=== PATIENT | female | born 1980 | race Caucasian/White ===

== ENCOUNTER 2017-05-13 01:10 | Emergency (ER) | payer MEDICARE, OTHER ==
[~2017-05-13] VITALS: Ht 157.5 cm; Wt 93.0 kg
[~2017-05-13 01:10] MED LIST: ADVAIR; ALBU90OI INH; ALBU90OI6 INH; ALBUTEROL; AMOCLA875 PO; AMOX500 PO; AN ANTIBIOTIC; ARIP10 PO; AZIT250 PO; Amoxicillin500 MG PO; Bactrim Ds Tab1 EACH PO; CEPH500 PO; CITA20 PO; CLOT1TC TOP; CODGUAEL PO; CYCL10 PO; DESV50 PO; FLUSAL1005 INH; Fluoxetine HCl20 M1 PO; GUAI600T33 PO; GUAIFENESIN-CODE5 ML PO; HYDACE5 PO; HYDCHL12.5 PO; HYDCHL25 PO; IBUP800 PO; Keflex500 MG PO; LEVFLO500 PO; LISI5 PO; LISINOPRIL PO; LOSA50 PO; MINO100 PO; Mobic15 MG PO; NAPR500 PO; Norco 5-325 Ta1 EACH PO; OMEP20ER PO; OSEL75CA PO; Omeprazole20 M1 PO; PARO30 PO; PRED20 PO; PROM25 PO; ROPI.25 PO; ROPI1 PO; RXPROM25 PO; SPACER IH; SULTRIDS PO; TRAM50 PO; TRAZ100 PO; Vibramycin100 MG PO; WELLBUTRIN; [UNRECOGNIZED DRUG - OTHER] PO; [UNRECOGNIZED DRUG - REMARK]
[2017-05-13] MEDS ORDERED: LITH300ER PO (03:35)
== END 2017-05-13 04:43 | disposition left against medical advice (07) ==
LOC: ER 01:10
DX: Z53.21 Procedure and treatment not carried out due to patient leaving prior to being seen by health care provider (principal)

== ENCOUNTER 2017-05-17 11:53 | Emergency (ER) | payer MEDICARE, OTHER ==
[~2017-05-17] VITALS: Ht 157.5 cm; Wt 97.5 kg
[~2017-05-17 11:53] MED LIST changes: +LITH300ER PO
== END 2017-05-17 13:01 | disposition home or self-care (01) ==
LOC: ER 11:53
DX: S01.01XA Laceration without foreign body of scalp, initial encounter (principal); J45.909 Unspecified asthma, uncomplicated; F32.9 Major depressive disorder, single episode, unspecified; Z88.1 Allergy status to other antibiotic agents; Z88.2 Allergy status to sulfonamides; Z79.899 Other long term (current) drug therapy; Z90.710 Acquired absence of both cervix and uterus; Z98.51 Tubal ligation status; Z90.49 Acquired absence of other specified parts of digestive tract; Z87.891 Personal history of nicotine dependence; W22.8XXA Striking against or struck by other objects, initial encounter
CPT/HCPCS: 12001; 90471; 90714; 99283

== ENCOUNTER 2018-03-19 16:52 | Emergency (ER) | payer MEDICARE ==
[~2018-03-19] VITALS: Ht 157.5 cm; Wt 93.0 kg
[2018-03-19 17:41] LABS: Alanine Aminotransfer (ALT/SGP 24 U/L (12-78); Albumin/Globulin Ratio 1.1 (0.8-1.8); Alk Phos 55 U/L (50-136); Anion Gap 8 mmol/L (6-16); Aspartate Aminotrans (AST/SGOT 40 U/L (12-37); Bilirubin, Total 1.1 mg/dL (0.1-1.0); Blood Urea Nitrogen 7 mg/dL (8-24); Bun/Creatinine Ratio 12.4 (12.0-20.0); CO2, Blood 26 mmol/L (21-32); Calcium, Blood 8.6 mg/dL (8.5-10.1); Chloride, Blood 104 mmol/L (98-108); Creatinine, Blood 0.56 mg/dL (0.40-1.00); Globulin, Blood 3.8 g/dL (2.2-4.0); Glomerular Filtration Rate >60 (60-); Glucose, Blood 100 mg/dL (70-99); Potassium, Blood 4.1 mmol/L (3.5-5.5); Sodium, Blood 138 mmol/L (136-145); Total Protein, Blood 7.8 g/dL (6.4-8.2)
[2018-03-19 17:51] LABS: Source, Urine Clean Catch
[2018-03-19 17:55] LABS: BASOPHILS ABSOLUTE AUTO 0.05 K/mm3 (0.00-0.23); BASOPHILS PERCENT AUTO 0 % (0-2); EOSINOPHILS PERCENT AUTO 0 % (0-6); Hemoglobin 13.1 g/dL (11.5-16.0); IMMATURE GRAN ABSOLUTE AUTO 0.09 K/mm3 (0.00-0.10); IMMATURE GRAN PERCENT AUTO 0 % (0-1); LYMPHOCYTES ABSOLUTE AUTO 2.51 K/mm3 (0.84-5.20); LYMPHOCYTES PERCENT AUTO 11 % (21-46); MONOCYTES ABSOLUTE AUTO 1.19 K/mm3 (0.16-1.47); MONOCYTES PERCENT AUTO 5 % (4-13); Mean Corpuscular HGB Conc 32.8 g/dL (31.5-36.5); Mean Corpuscular Volume 89 fL (80-100); Mean Platelet Volume 9.9 fL (9.1-12.4); NEUTROPHILS ABSOLUTE AUTO 19.45 K/mm3 (1.96-9.15); NEUTROPHILS PERCENT AUTO 83 % (41-73); Platelet Count 290 K/mm3 (150-400); RDW Coefficient Variation 13.5 % (11.7-14.2); RDW Standard Deviation 44.1 fL (35.1-46.3); Red Blood Cell Count 4.51 M/mm3 (3.80-5.20); White Blood Cell Count 23.39 K/mm3 (4.00-11.30)
[2018-03-19 17:56] LABS: Appearance, Urine Clear (Clear); Bilirubin, Urine Neg (Neg); Blood, Urine Neg (Neg); Color, Urine Yellow (P-Yellow); Glucose Qualitative, Urine Neg (Neg); Ketones, Urine 2+ (Neg); Leukocyte Esterase, Urine 2+ (Neg); Nitrite, Urine Neg (Neg); Protein, Urine 2+ (Neg); Urobilinogen, Urine 1+ (Normal)
[2018-03-19 18:14] LABS: Bacteria Rare /hpf; Mucus Mod (0-Heavy); Red Blood Cells, Urine 0-2 /hpf (0-2); Squamous Epithelial Cells Few /hpf (Few)
[2018-03-19] MEDS ORDERED: CIPR500 PO (21:31)
[2018-03-19 21:53] LABS: U Amphetamine Screen DETECTED; U Barbituate Screen Not Detected; U Benzodiazapine Screen Not Detected; U Buprenorphine Screen Not Detected; U Cannabinoids Screen DETECTED; U Cocaine Screen Not Detected; U Methadone Screen Not Detected; U Methamphetamine Screen DETECTED; U Opiates Screen Not Detected; U Oxycodone Screen Not Detected; U Phencyclidine Screen Not Detected; U Propoxyphene Screen Not Detected
[2018-03-20] MEDS ORDERED: IBUP400 PO (16:57)
== END 2018-03-19 21:50 | disposition home or self-care (01) ==
LOC: ER 16:52
PROVIDERS: Emergency Medicine; Family Medicine; Physician Assistant
DX: N12 Tubulo-interstitial nephritis, not specified as acute or chronic (principal); Z88.2 Allergy status to sulfonamides; Z88.1 Allergy status to other antibiotic agents; Z79.899 Other long term (current) drug therapy; J45.909 Unspecified asthma, uncomplicated; F32.9 Major depressive disorder, single episode, unspecified; Z90.49 Acquired absence of other specified parts of digestive tract
CPT/HCPCS: 36415; 74176; 80053; 81001; 85025; 85651; 86141; 87086; 96374; 96375; 99284-25; J2405; J3010

== ENCOUNTER 2018-03-20 13:17 | Emergency (ER) | payer MEDICARE ==
[~2018-03-20] VITALS: Ht 157.5 cm; Wt 93.0 kg
[~2018-03-20 13:17] MED LIST changes: +CIPR500 PO
[2018-03-20] MEDS ORDERED: IBUP400 PO (16:57)
== END 2018-03-20 17:22 | disposition home or self-care (01) ==
LOC: ER 13:17
DX: M51.36 Other intervertebral disc degeneration, lumbar region (principal); F32.9 Major depressive disorder, single episode, unspecified; J45.909 Unspecified asthma, uncomplicated; Z87.891 Personal history of nicotine dependence; Z88.2 Allergy status to sulfonamides; Z88.1 Allergy status to other antibiotic agents; Z79.899 Other long term (current) drug therapy
CPT/HCPCS: 72158; 96372; 99283-25; A9577; J1885

== ENCOUNTER 2018-11-28 18:48 | Inpatient (IN) | payer MEDICARE, OTHER ==
[~2018-11-28] VITALS: Ht 167.6 cm; Wt 97.6 kg
[~2018-11-28 18:48] MED LIST changes: +IBUP400 PO
[2018-11-28 19:36] LABS: BASOPHILS ABSOLUTE AUTO 0.04 K/mm3 (0.00-0.23); BASOPHILS PERCENT AUTO 0 % (0-2); EOSINOPHILS ABSOLUTE AUTO 0.19 K/mm3 (0.00-0.68); EOSINOPHILS PERCENT AUTO 2 % (0-6); Hematocrit 43.4 % (33.0-51.0); Hemoglobin 13.8 g/dL (11.5-16.0); IMMATURE GRAN ABSOLUTE AUTO 0.02 K/mm3 (0.00-0.10); IMMATURE GRAN PERCENT AUTO 0 % (0-1); LYMPHOCYTES ABSOLUTE AUTO 2.04 K/mm3 (0.84-5.20); LYMPHOCYTES PERCENT AUTO 21 % (21-46); MONOCYTES ABSOLUTE AUTO 0.47 K/mm3 (0.16-1.47); MONOCYTES PERCENT AUTO 5 % (4-13); Mean Corpuscular HGB 27.3 pg (26.0-34.0); Mean Corpuscular HGB Conc 31.8 g/dL (31.5-36.5); Mean Corpuscular Volume 86 fL (80-100); Mean Platelet Volume 9.7 fL (9.1-12.4); NEUTROPHILS ABSOLUTE AUTO 6.99 K/mm3 (1.96-9.15); NEUTROPHILS PERCENT AUTO 72 % (41-73); Platelet Count 289 K/mm3 (150-400); RDW Coefficient Variation 13.1 % (11.7-14.2); RDW Standard Deviation 40.5 fL (35.1-46.3); Red Blood Cell Count 5.05 M/mm3 (3.80-5.20); White Blood Cell Count 9.75 K/mm3 (4.00-11.30)
[2018-11-28 19:54] LABS: Alanine Aminotransfer (ALT/SGP 16 U/L (12-78); Albumin, Blood 3.4 g/dL (3.4-5.0); Albumin/Globulin Ratio 0.9 (0.8-1.8); Alk Phos 63 U/L (50-136); Anion Gap 5 mmol/L (6-16); Aspartate Aminotrans (AST/SGOT 15 U/L (12-37); Bilirubin, Total 0.4 mg/dL (0.1-1.0); Blood Urea Nitrogen 11 mg/dL (8-24); Bun/Creatinine Ratio 16.9 (12.0-20.0); CO2, Blood 28 mmol/L (21-32); Calcium, Blood 8.8 mg/dL (8.5-10.1); Chloride, Blood 103 mmol/L (98-108); Creatinine, Blood 0.65 mg/dL (0.40-1.00); Globulin, Blood 3.8 g/dL (2.2-4.0); Glomerular Filtration Rate >60 (60-); Glucose, Blood 113 mg/dL (70-99); Potassium, Blood 3.5 mmol/L (3.5-5.5); Sodium, Blood 136 mmol/L (136-145); Total Protein, Blood 7.2 g/dL (6.4-8.2)
[2018-11-28 20:12] LABS: Lithium <0.20 mmol/L (0.60-1.20)
[2018-11-28] MEDS ORDERED: LOSARTAN POTASS50 MG PO (20:33)
[2018-11-28] MEDS ORDERED: LITH300C PO (20:34)
[2018-11-28] MEDS ORDERED: Prozac40 MG PO (20:34)
[2018-11-28] MEDS ORDERED: Ventolin/Prove6.7 GM INH (20:34)
--- NOTE | 2018-11-28 22:14 | NUR ---
REPORT RECEIVED FROM TYLOR RIZVI IN EMERGENCY DEPARTMENT.
[2018-11-29 01:11] LABS: Source, Urine Clean Catch
[2018-11-29 01:20] LABS: Appearance, Urine Clear (Clear); Bilirubin, Urine Neg (Neg); Blood, Urine Neg (Neg); Color, Urine Yellow (P-Yellow); Glucose Qualitative, Urine Neg (Neg); Ketones, Urine Neg (Neg); Leukocyte Esterase, Urine Neg (Neg); Nitrite, Urine Neg (Neg); Protein, Urine Neg (Neg); Urobilinogen, Urine NORM (Normal)
[2018-11-29 01:29] LABS: U Amphetamine Screen DETECTED; U Barbituate Screen Not Detected; U Benzodiazapine Screen Not Detected; U Buprenorphine Screen Not Detected; U Cannabinoids Screen DETECTED; U Cocaine Screen Not Detected; U Methadone Screen Not Detected; U Methamphetamine Screen DETECTED; U Opiates Screen Not Detected; U Oxycodone Screen Not Detected; U Phencyclidine Screen Not Detected; U Propoxyphene Screen Not Detected
[2018-11-29 03:28] LABS: BASOPHILS ABSOLUTE AUTO 0.05 K/mm3 (0.00-0.23); BASOPHILS PERCENT AUTO 1 % (0-2); EOSINOPHILS ABSOLUTE AUTO 0.28 K/mm3 (0.00-0.68); EOSINOPHILS PERCENT AUTO 3 % (0-6); Hematocrit 42.2 % (33.0-51.0); Hemoglobin 13.4 g/dL (11.5-16.0); IMMATURE GRAN ABSOLUTE AUTO 0.02 K/mm3 (0.00-0.10); IMMATURE GRAN PERCENT AUTO 0 % (0-1); LYMPHOCYTES ABSOLUTE AUTO 3.31 K/mm3 (0.84-5.20); LYMPHOCYTES PERCENT AUTO 36 % (21-46); MONOCYTES ABSOLUTE AUTO 0.58 K/mm3 (0.16-1.47); MONOCYTES PERCENT AUTO 6 % (4-13); Mean Corpuscular HGB 27.3 pg (26.0-34.0); Mean Corpuscular HGB Conc 31.8 g/dL (31.5-36.5); Mean Corpuscular Volume 86 fL (80-100); Mean Platelet Volume 9.7 fL (9.1-12.4); NEUTROPHILS ABSOLUTE AUTO 4.94 K/mm3 (1.96-9.15); NEUTROPHILS PERCENT AUTO 54 % (41-73); Platelet Count 279 K/mm3 (150-400); RDW Coefficient Variation 13.2 % (11.7-14.2); RDW Standard Deviation 40.9 fL (35.1-46.3); White Blood Cell Count 9.18 K/mm3 (4.00-11.30)
[2018-11-29 03:51] LABS: Anion Gap 6 mmol/L (6-16); Blood Urea Nitrogen 12 mg/dL (8-24); Bun/Creatinine Ratio 17.7 (12.0-20.0); CHOL/HDL RATIO 3.2; CO2, Blood 26 mmol/L (21-32); Calcium, Blood 8.4 mg/dL (8.5-10.1); Chloride, Blood 107 mmol/L (98-108); Cholesterol 145 mg/dL (50-200); Creatinine, Blood 0.68 mg/dL (0.40-1.00); Glomerular Filtration Rate >60 (60-); Glucose, Blood 84 mg/dL (70-99); HDL Cholesterol 45 mg/dL (>39); LDL/HDL RATIO 1.7; Low Density Lipoprotein Chol 74 mg/dL (0-110); Potassium, Blood 4.4 mmol/L (3.5-5.5); Sodium, Blood 139 mmol/L (136-145); Triglycerides 128 mg/dL (30-140); Very Low Density Lipoprot Chol 25 mg/dL (6-28)
--- NOTE | 2018-11-29 06:34 | NUR ---
SUMMARY SINCE ARRIVAL TO ICU, NEURO STATUS GRADUALLY IMPROVING. SEE NEURO ASSESSMENTS. PT'S STRENGTH HAS IMPROVED VASTLY ON RIGHT SIDE, BUT RIGHT LEG CONTINUES TO BE NUMB AND PT CONTINUES TO HAVE SEVERE SLURRED SPEECH. PT HAS SLEPT MAJORITY OF NIGHT BUT AROUSES EASILY FOR REASSESSMENTS. ROOMING IN. VITALS STABLE. SEE FLOWSHEET. PT EDUCATED ON USE OF CALL LIGHT BUT HAS BEEN IMPULSIVE. BED ALARM IN PLACE FOR SAFETY. STAND BY ASSIST FOR USE OF THE BEDSDIE COMMODE.
--- NOTE | 2018-11-29 08:30 | NUR ---
INITIAL ASSESSMENT PATIENT RESTING QUIETLY UPON ENTERING ROOM. PATIENT ALERT AND ORIENTED X 4. PATIENT IMPULSIVE. SPEECH GARBLED. R HAND/ ARM SLIGHTLY WEAKER THAN LEFT SIDE, BUT HAVE RECEIVED REPORT THAT IT HAS BEEN IMPROVING. PATIENT AFEBRILE. DENIES PAIN. 1 PA. RESPIRATORY WNL. PATIENT SATTING 90% AND GREATER ON RA. LUNGS CLEAR. PATIENT IN SR, HR IN THE 70S. BP STABLE. SCDS IN PLACE. GI WNL. DATE OF LAST BM UNKNOWN. WNL. SCABS, SCARRING AND BRUISES SCATTERED T/O BODY. LR INFUSING AT 125 MLS/ HOUR. BED LOW, CALL LIGHT IN REACH. WILL CONTINUE TO MONITOR PATIENT FREQUENLTY THROUGHOUT SHIFT.
--- NOTE | 2018-11-29 12:43 | NUR ---
PATIENT SITTING IN CHAIR, SPEAKING WITH VISITORS. PATIENT HAS NO COMPLAINTS AT THIS TIME. NO ACUTE CHANGES. VITAL SIGNS STABLE. WILL CONTINUE TO MONITOR.
--- NOTE | 2018-11-29 14:07 | NUR ---
PATIENT BEING TRANSFERRED NOW TO PCU ROOM 16.
[2018-11-29] MEDS ORDERED: FLUT1DIS2 INH (14:45)
[2018-11-29] MEDS ORDERED: TIZA4 PO (14:46)
--- NOTE | 2018-11-29 14:49 | NUR ---
PT TRANSFERRED FROM ICU 11. NOTED TO HAVE WEAKNESS IN ARMS AND LEGS BUT EQUAL OXYGEN THERAPY TEACHER AND MOVEMENT. COMPREHENDS WHEN SPOKEN TO BUT SLURRED SPEECH. FAMILY AT BEDSIDE. DENIES NEEDS OR CONCERNS AT THIS TIME.
--- NOTE | 2018-11-29 17:44 | NUR ---
SHIFT SUMMARY: PT INDEPENDENT IN ROOM. NEURO REMAINS UNCHANGED SINCE TRANSFER, SLURRED SPEECH. FAMILY AT BEDSIDE. DENIES NEEDS OR CONCERNS.
[2018-11-30 04:41] LABS: Anion Gap 5 mmol/L (6-16); Blood Urea Nitrogen 13 mg/dL (8-24); Bun/Creatinine Ratio 17.4 (12.0-20.0); CO2, Blood 27 mmol/L (21-32); Calcium, Blood 8.6 mg/dL (8.5-10.1); Chloride, Blood 106 mmol/L (98-108); Creatinine, Blood 0.75 mg/dL (0.40-1.00); Glomerular Filtration Rate >60 (60-); Glucose, Blood 99 mg/dL (70-99); Potassium, Blood 4.1 mmol/L (3.5-5.5); Sodium, Blood 138 mmol/L (136-145)
--- NOTE | 2018-11-30 04:58 | NUR ---
SHIFT SUMMARY: PATIENT DISPLAYING EXPRESSIVE AND RECEPTIVE APHASIA, RIGHT TONGUE DEVIATION AND VERY MILD RIGHT FACIAL DROOP. SOME RIGHT LEG ATAXIA. RIGHT CHEEK, ARM AND LEG SENSATION LOSS. ALL VSS, CALL LIGHT WITHIN REACH, BED LOW AND LOCKED WITH FFAMILY AT BEDSIDE.
[2018-11-30] MEDS ORDERED: ASPI81CH PO (10:56)
[2018-11-30] MEDS ORDERED: ATOR40TA PO (10:57)
[2018-11-30] MEDS ORDERED: LITH300C PO (11:00)
[2018-11-30] MEDS ORDERED: AMLO10 PO (11:01)
--- NOTE | 2018-11-30 14:41 | NUR ---
PT DC'D 1220 WITH DC INSTRUCTIONS TO PT AND - STAYED THE NIGHT, HELPFUL IN PT CARE. IV DC'D. PT WHEELCHAIR OUT TO PRIVATE CAR TO HOME. HOME HEALTH TO FOLLOW UP. FAMILY TO FOLLOW UP WITH OUTPATIENT SPEECH.
== END 2018-11-30 12:24 | disposition home or self-care (01) | DRG 66 ==
LOC: ER 18:48 → ICUW 21:14 → PCU 11-29 14:33
PROVIDERS: Emergency Medicine; Internal Medicine; Nurse Practitioner Acute Care; Physician Assistant; ADMIT Internal Medicine
DX: I63.512 Cerebral infarction due to unspecified occlusion or stenosis of left middle cerebral artery (principal); R47.1 Dysarthria and anarthria; R53.1 Weakness; F15.10 Other stimulant abuse, uncomplicated; F17.210 Nicotine dependence, cigarettes, uncomplicated; I10 Essential (primary) hypertension; F31.9 Bipolar disorder, unspecified; J45.909 Unspecified asthma, uncomplicated; R47.81 Slurred speech; Z68.35 Body mass index [BMI] 35.0-35.9, adult; E66.9 Obesity, unspecified
CPT/HCPCS: 36415; 70450; 80048; 80053; 80061; 80178; 81003; 83735; 85025; 92523; 92610; 93005; 93010; 97110; 97116; 97162; 97166; 97530; 97535; 99285-25; A9270; J3480; J7120

== ENCOUNTER 2019-11-28 06:08 | Day surgery (SDC) | payer MEDICARE, OTHER ==
[~2019-11-28] VITALS: Ht 157.5 cm; Wt 101.5 kg
[~2019-11-28 06:08] MED LIST changes: +AMLO10 PO; +ASPI81CH PO; +ASPIR 8181 M1 PO; +ATOR40TA PO; +Amlodipine Bes2.5 MG PO; +FLUT1DIS2 INH; +FLUTICASONE-SA1 EAC8 INH; +HYDR1TAB94 PO; +LITH300C PO; +LOSARTAN POTASS50 MG PO; +Prozac40 MG PO; +TIZA4 PO; +Ventolin/Prove6.7 GM INH
[2019-11-28] MEDS ORDERED: HYDR1TAB94 PO (06:53)
[2019-11-28 07:05] LABS: Alanine Aminotransfer (ALT/SGP 13 U/L (12-78); Albumin/Globulin Ratio 0.9 (0.8-1.8); Alk Phos 52 U/L (50-136); Anion Gap 4 mmol/L (6-16); Aspartate Aminotrans (AST/SGOT 11 U/L (12-37); Bilirubin, Total 0.1 mg/dL (0.1-1.0); Blood Urea Nitrogen 13 mg/dL (8-24); Bun/Creatinine Ratio 21.5 (12.0-20.0); CO2, Blood 26 mmol/L (21-32); Calcium, Blood 8.6 mg/dL (8.5-10.1); Chloride, Blood 109 mmol/L (98-108); Creatinine, Blood 0.61 mg/dL (0.40-1.00); Globulin, Blood 3.5 g/dL (2.2-4.0); Glomerular Filtration Rate >60 (60-); Glucose, Blood 84 mg/dL (70-99); Potassium, Blood 4.1 mmol/L (3.5-5.5); Sodium, Blood 139 mmol/L (136-145); Total Protein, Blood 6.5 g/dL (6.4-8.2)
== END 2019-11-28 09:50 | disposition home or self-care (01) ==
LOC: ORSCSDS 06:08
PROVIDERS: Surgery
PROC: 0DNU4ZZ Release Omentum, Percutaneous Endoscopic Approach (ICD-10-PCS; principal; 2019-11-28 07:30)
PROC: BF031ZZ Plain Radiography of Gallbladder and Bile Ducts using Low Osmolar Contrast (ICD-10-PCS; principal; 2019-11-28 07:30)
PROC: 0FT44ZZ Resection of Gallbladder, Percutaneous Endoscopic Approach (ICD-10-PCS; principal; 2019-11-28 07:30)
DX: K80.11 Calculus of gallbladder with chronic cholecystitis with obstruction (principal); K66.0 Peritoneal adhesions (postprocedural) (postinfection); I10 Essential (primary) hypertension; F17.210 Nicotine dependence, cigarettes, uncomplicated; Z86.73 Personal history of transient ischemic attack (TIA), and cerebral infarction without residual deficits; Z79.899 Other long term (current) drug therapy; Z79.82 Long term (current) use of aspirin
CPT/HCPCS: 74300; 80053; 88304; C1729; J0690; J1100; J1885; J2250; J2405; J2704; J2710; J2765; J3010; J7120

== ENCOUNTER 2020-02-07 01:40 | Emergency (ER) | payer MEDICARE, OTHER ==
[~2020-02-07] VITALS: Ht 157.5 cm; Wt 98.0 kg
[2020-02-07 06:03] LABS: Candida species (DNA Probe) Negative (NEGATIVE); G. vaginalis (DNA Probe) Negative (NEGATIVE); T. vaginalis (DNA Probe) Negative (NEGATIVE)
[2020-02-10 11:09] LABS: CHLAMYDIA BY NAA Negative (Negative); GONOCOCCUS BY NAA Negative (Negative); TRICH VAG BY NAA Negative (Negative)
== END 2020-02-07 05:37 | disposition home or self-care (01) ==
LOC: ER 01:40
PROVIDERS: Emergency Medicine
DX: Z03.823 Encounter for observation for suspected inserted (injected) foreign body ruled out (principal); R10.2 Pelvic and perineal pain; J45.909 Unspecified asthma, uncomplicated; F32.9 Major depressive disorder, single episode, unspecified; F17.200 Nicotine dependence, unspecified, uncomplicated; Z88.2 Allergy status to sulfonamides; Z88.1 Allergy status to other antibiotic agents; Z79.82 Long term (current) use of aspirin; Z86.73 Personal history of transient ischemic attack (TIA), and cerebral infarction without residual deficits
CPT/HCPCS: 87480; 87491; 87510; 87591; 87660; 87661; 99283

== ENCOUNTER 2021-01-29 18:37 | Emergency (ER) | payer OTHER, MEDICARE ==
[~2021-01-29] VITALS: Ht 157.5 cm; Wt 98.4 kg
[~2021-01-29 18:37] MED LIST changes: +BENZ100A PO
== END 2021-01-29 20:41 | disposition home or self-care (01) ==
LOC: ER 18:37
DX: S06.0X0A Concussion without loss of consciousness, initial encounter (principal); Z88.2 Allergy status to sulfonamides; Z88.1 Allergy status to other antibiotic agents; Z79.82 Long term (current) use of aspirin; Z79.899 Other long term (current) drug therapy; J45.909 Unspecified asthma, uncomplicated; F17.210 Nicotine dependence, cigarettes, uncomplicated; V49.40XA Driver injured in collision with unspecified motor vehicles in traffic accident, initial encounter
CPT/HCPCS: 70450; 96372; 99284-25; J1885

== ENCOUNTER → 2021-02-14 | Outpatient (CLI) | payer MEDICARE, OTHER | END | disposition home or self-care (01) | LOC: LAB SHORT 17:38 → LAB 17:38 | DX: N39.0 Urinary tract infection, site not specified (principal) | CPT/HCPCS: 87086 ==

== ENCOUNTER 2021-03-26 15:00 | Emergency (ER) | payer MEDICARE, OTHER ==
[~2021-03-26] VITALS: Ht 157.5 cm; Wt 98.4 kg
[2021-03-26 16:30] LABS: BASOPHILS ABSOLUTE AUTO 0.05 K/mm3 (0.00-0.23); BASOPHILS PERCENT AUTO 1 % (0-2); EOSINOPHILS ABSOLUTE AUTO 0.11 K/mm3 (0.00-0.68); EOSINOPHILS PERCENT AUTO 1 % (0-6); Hematocrit 40.7 % (33.0-51.0); Hemoglobin 13.4 g/dL (11.5-16.0); IMMATURE GRAN ABSOLUTE AUTO 0.01 K/mm3 (0.00-0.10); IMMATURE GRAN PERCENT AUTO 0 % (0-1); LYMPHOCYTES ABSOLUTE AUTO 2.48 K/mm3 (0.84-5.20); LYMPHOCYTES PERCENT AUTO 27 % (21-46); MONOCYTES ABSOLUTE AUTO 0.59 K/mm3 (0.16-1.47); MONOCYTES PERCENT AUTO 6 % (4-13); Mean Corpuscular HGB 27.7 pg (26.0-34.0); Mean Corpuscular HGB Conc 32.9 g/dL (31.5-36.5); Mean Corpuscular Volume 84 fL (80-100); Mean Platelet Volume 10.2 fL (9.1-12.4); NEUTROPHILS ABSOLUTE AUTO 6.07 K/mm3 (1.96-9.15); NEUTROPHILS PERCENT AUTO 65 % (41-73); Platelet Count 275 K/mm3 (150-400); RDW Coefficient Variation 13.5 % (11.7-14.2); RDW Standard Deviation 41.8 fL (35.1-46.3); Red Blood Cell Count 4.83 M/mm3 (3.80-5.20); White Blood Cell Count 9.31 K/mm3 (4.00-11.30)
[2021-03-26 16:48] LABS: Troponin I <0.015 ng/mL (0.000-0.040)
[2021-03-26 16:49] LABS: Alanine Aminotransfer (ALT/SGP 18 U/L (12-78); Albumin, Blood 3.6 g/dL (3.4-5.0); Alk Phos 44 U/L (50-136); Anion Gap 8 mmol/L (6-16); Aspartate Aminotrans (AST/SGOT 15 U/L (12-37); Bilirubin, Total 0.5 mg/dL (0.1-1.0); Blood Urea Nitrogen 21 mg/dL (8-24); CO2, Blood 24 mmol/L (21-32); Calcium, Blood 8.8 mg/dL (8.5-10.1); Chloride, Blood 107 mmol/L (98-108); Creatinine, Blood 0.64 mg/dL (0.40-1.00); Globulin, Blood 3.5 g/dL (2.2-4.0); Glomerular Filtration Rate >60 (60-); Glucose, Blood 83 mg/dL (70-99); Potassium, Blood 3.7 mmol/L (3.5-5.5); Sodium, Blood 139 mmol/L (136-145); Total Protein, Blood 7.1 g/dL (6.4-8.2)
[2021-03-26 17:07] LABS: Influenza A, PCR NEGATIVE (NEGATIVE); Influenza B, PCR NEGATIVE (NEGATIVE); Resp Syncytial Virus, PCR NEGATIVE (NEGATIVE); SARS-Cov-2 (COVID-19) PCR, MMC NEGATIVE (NEGATIVE)
== END 2021-03-26 17:30 | disposition home or self-care (01) ==
LOC: ER 15:00
PROVIDERS: Physician Assistant
DX: B34.9 Viral infection, unspecified (principal); Z20.822 Contact with and (suspected) exposure to COVID-19; J45.909 Unspecified asthma, uncomplicated; I10 Essential (primary) hypertension; E78.5 Hyperlipidemia, unspecified; Z86.73 Personal history of transient ischemic attack (TIA), and cerebral infarction without residual deficits; F17.200 Nicotine dependence, unspecified, uncomplicated
CPT/HCPCS: 0241U; 36415; 71045; 80053; 84484; 85025; 93005; 93010; 96374; 99284-25; J1885

== ENCOUNTER 2021-08-09 17:34 | Inpatient (IN) | payer MEDICARE, OTHER ==
[~2021-08-09] VITALS: Ht 157.5 cm; Wt 114.4 kg
[2021-08-09 19:40] LABS: BASOPHILS ABSOLUTE AUTO 0.03 K/mm3 (0.00-0.23); BASOPHILS PERCENT AUTO 0 % (0-2); EOSINOPHILS PERCENT AUTO 0 % (0-6); Hemoglobin 12.7 g/dL (11.5-16.0); IMMATURE GRAN ABSOLUTE AUTO 0.04 K/mm3 (0.00-0.10); IMMATURE GRAN PERCENT AUTO 0 % (0-1); LYMPHOCYTES PERCENT AUTO 10 % (21-46); MONOCYTES ABSOLUTE AUTO 0.34 K/mm3 (0.16-1.47); MONOCYTES PERCENT AUTO 3 % (4-13); Mean Corpuscular HGB 27.9 pg (26.0-34.0); Mean Corpuscular HGB Conc 32.6 g/dL (31.5-36.5); Mean Corpuscular Volume 86 fL (80-100); Mean Platelet Volume 10.2 fL (9.1-12.4); NEUTROPHILS PERCENT AUTO 86 % (41-73); Platelet Count 324 K/mm3 (150-400); RDW Coefficient Variation 12.9 % (11.7-14.2); RDW Standard Deviation 40.4 fL (35.1-46.3); Red Blood Cell Count 4.55 M/mm3 (3.80-5.20); White Blood Cell Count 11.91 K/mm3 (4.00-11.30)
[2021-08-09 19:47] LABS: Bun/Creatinine Ratio 41.8 (12.0-20.0); Calcium, Blood 8.8 mg/dL (8.5-10.1); Creatinine, Blood 0.46 mg/dL (0.40-1.00); Potassium, Blood 4.4 mmol/L (3.5-5.5)
[2021-08-09 19:53] LABS: International Normalized Ratio 0.98; Prothrombin Time Results 10.3 Sec (9.7-11.5)
[2021-08-09 20:42] LABS: Anti-Xa UFH, PHA Monitoring <0.10 IU/mL
[2021-08-09 21:26] LABS: Influenza A, PCR NEGATIVE (NEGATIVE); Influenza B, PCR NEGATIVE (NEGATIVE); Resp Syncytial Virus, PCR NEGATIVE (NEGATIVE); SARS-Cov-2 (COVID-19) PCR, MMC NEGATIVE (NEGATIVE)
[2021-08-09 21:47] LABS: Creatine Kinase MB 2.5 ng/mL (0.0-3.6); Creatine Kinase MB Index 1.1 (0.0-4.0)
[2021-08-09 22:42] LABS: Fibrinogen 338 mg/dL (170-430)
[2021-08-10] MEDS ORDERED: NEURONTIN300 MG PO (01:10)
[2021-08-10] MEDS ORDERED: BUSPIRONE HCL10 M6 PO (01:10)
--- NOTE | 2021-08-10 02:43 | NUR ---
PATIENT TO ROOM FROM [facility] AT 0100. PATIENT IS ALERT AND ORIENTED X4, COOPERATIVE WITH CARE. 02 SATS >95% ON RA, DENIES SOB. HR NSR AT 70s WITH OCCASIONAL PVCs. BP STABLE, DENIES CP PRESSURE. PATIENT HAS LEFT GROIN SITE WITH SHEATH IN PLACE, TPA AND HEPARIN INFUSING, RATES VERIFIED WITH ARUN Lopez RN. SITE WNL, NO HEMATOMA, DRESSING C/D/I, PULSES IN LOWER EXTREMETIES. RIGHT KNEE IS IMMOBILIZED. PATIENT STATES SOME NUMBNESS IN RIGHT FOOT BUT IMPROVING. PULSES STRONG IN RIGHT FOOT, WARM AND PINK IN COLOR. MEDICATED PER EMAR FOR RIGHT KNEE PAIN. HELTON PATENT AND DRAINING CLEAR YELLOW TO GRAVITY. CALL LIGHT IN REACH.
--- NOTE | 2021-08-10 04:07 | NUR ---
PULSES IN RLE BECAME FAINT/THREADY, NEEDED DOPPLER TO LOCATE PULSES. DR. ESPINOSA NOTIFIED, ORDERS TO KEEP TPA INF AT CURRENT RATE AND NOT TO DECREASE. FOOT REMAINS WARM TO THE TOUCH, PATIENT STATES IT IS STILL NUMB, ABLE TO WIGGLE TOES.
[2021-08-10 06:21] LABS: Source, Urine Foley catheter
[2021-08-10 06:28] LABS: Bilirubin, Urine Neg (Neg); Blood, Urine 4+ (Neg); Glucose Qualitative, Urine Neg (Neg); Ketones, Urine Neg (Neg); Leukocyte Esterase, Urine Neg (Neg); Nitrite, Urine Neg (Neg); Protein, Urine 2+ (Neg); Specific Gravity, Urine 1.025 (1.003-1.022); Urobilinogen, Urine NORM (Normal)
[2021-08-10 07:20] LABS: Appearance, Urine Clear (Clear); Color, Urine Yellow (P-Yellow)
[2021-08-10 07:22] LABS: White Blood Cells, Urine 0-2 /hpf (0-5)
[2021-08-10 07:23] LABS: Squamous Epithelial Cells Not Seen /hpf (Few)
[2021-08-10 07:24] LABS: Bacteria Few /hpf; Mucus Heavy (0-Heavy)
--- NOTE | 2021-08-10 08:00 | NUR ---
PT A&OX4. PT REPORTS 10/10 PAIN TO RIGHT LEG. MED WITH FENTANYL 25 MCG IVP X 1 AND VERSED 0.5 MG IVP X 1 -SEE EMAR. ECG SHOWS SR. SBP TRENDING 130'S. RIGHT DP/PT PER DOPPLER. RIGHT FOOT WARM. RIGHT LEG IN IMMOBILIZER-NO NOTED EDEMA OR SWELLING. LEFT FEMORAL SHEATH IN PLACE-NO BLEEDING OR HEMATOMA-HEPARIN INFUSING @ 600 UNITS/HR AND CATHFLO INFUSING @ 1MG/HR VIA LEFT FEMORAL SHEATH. PT GIVEN CLEAR LIQUID BREAKFAST, THEN MADE NPO SHE WILL RETURN TO THE HEART CENTER LATER TODAY. HELTON TO BSD WITH ADEQUATE AMOUNT OF CLEAR, YELLOW URINE OUTPUT. PT IS ON HER MENSES. REGGIE AND CATH CARE COMPLETED AND NEW REGGIE PAD PLACED.
--- NOTE | 2021-08-10 08:32 | NUR ---
PT CONTINUES TO REPORT 10/10 RIGHT LEG PAIN. FENTANYL 25 MCG LOADING DOSE GIVEN, AND THEN FENTANYL CONTINUOUS INITIATED @ 25 MCG/HR. DR. ESPINOSA IN TO SEE PT-UPDATE GIVEN.
--- NOTE | 2021-08-10 11:30 | NUR ---
PT CONTINUES TO REPORT RIGHT LEG PAIN-10/12 DESPITE FENTANYL CONTINUOUS @ 25 MCG/HR- DR. GOLDSTEIN GIVEN UPDATE-CNC SERVICE ENGINEER MODE CHANGED TO CNC SERVICE ENGINEER AND CONTINUOUS-SEE EMAR. LOADING DOSE OF 25 MCG GIVEN. HR REMAINS 80'S SR. BP STABLE. DP/PT PULSES PER DOPPLER. RIGHT FOOT REMAINS WARM. PT NPO EXCEPT FOR SIPS OF H20 WITH MEDS.
--- NOTE | 2021-08-10 11:45 | NUR ---
DR. CAI HERE TO SEE PT. RIGHT LEG IMMOBILIZER LOOSENED BRIEFLY AND RIGHT CALF NOTED TO BE FIRM AND SWOLLEN. NO NOTED ON AM ASSESSMENT. PT DENIES PAIN AT THIS TIME. ORTHO TO CONTINUE TO MONITOR. RN TO MONITOR RIGHT LEG FOR COMPARTMENT SYNDROME.
--- NOTE | 2021-08-10 13:30 | NUR ---
DURING HOURLY ASSESSMENT OF RIGHT LEG, NOTED INCREASED SWELLING TO CALF. PT REPORTS INCREASED PAIN 10/10 AND SHE IS SOBBING DESPITE FENTANYL CONTINUOUS AND RUBY ON RAILS ENGINEER. UNABLE TO AUSCULTATE DP PULSE WITH DOPPLER. PT PER DOPPLER. RIGHT FOOT WITH DECREASED SENSATION AND THE FOOT IS NO LONGER PINK AND WARM. THE TOES OF THE RIGHT FOOT APPEAR WHITISH IN COLOR AND THE FOOT IS NOW COOL. DR. CAI UPDATED AT [address] ESPINOSA UPDATED AT 1325. NO NEW ORDERS. PT MED WITH VERSED 0.5 MG SHE IS CRYING HYSTERICALLY DUE TO PAIN.
--- NOTE | 2021-08-10 14:05 | NUR ---
DR. GOLDSTEIN UPDATED TO INCREASED PAIN, INCREASED SWELLING, DECREASED SENSATION, AND THE INABLILITY TO AUSCULTATE DP PULSE WITH DOPPLER. ALSO, MD AWARE THAT RIGHT FOOT IS COOL AND WHITISH IN APPEARANCE. PT CONTINUES TO BE TEARFUL AND INCONSOLABLE DUE TO THE PAIN. MED WITH DILAUDID 0.5 MG IVP X 1 -SEE EMAR. #18 GUAGE 10 CM EXTENDED DWELL CATHETER PLACED TO RIGHT UPPER ARM. BRIEF REPORT GIVEN TO TYLOR MARQUEZ-PT TO HEART CENTER VIA BED @ 8046.
--- NOTE | 2021-08-10 15:15 | NUR ---
PT RETURNED FROM ON AIR TALENT. LEFT FEMORAL ANGIOSEAL CLOSURE MAN @ 5228-DRESSING C/D/I-SITE SOFT, NO BLEEDING OR HEMATOMA. RIGHT CALF REMAINS SWOLLEN AND PT REPORTS 8/10 PAIN. RIGHT DP/PT PULSES STRONG AND PALPABLE. THE RIGHT FOOT IS PINK, BUT THE TOES ARE COOL. RIGHT FOOT REMAINS "NUMB". PT STATES THAT HER RIGHT FOOT IS NOT NUMB IT WAS PRIOR TO ON AIR TALENT.
--- NOTE | 2021-08-10 15:30 | NUR ---
DR. CAI AND DR. ROWE IN TO SEE PT. FULL UPDATE GIVEN. INFORMED CONSENT OBTAINED BY DR. ROWE FOR RIGHT LEG FASCIOTOMY.
--- NOTE | 2021-08-10 16:08 | NUR ---
PT MOANING AND CRYING OUT. REPORTS 10/10 RIGHT LEG PAIN. LEFT FEMORAL SITE REMAINS CLEAR. NO BLEEDING OR HEMATOMA. DP/PT PULSES 2+ BILATERALLY. FENTANYL CONTINUOUS @ 25 MCG/HR AND STRIPPER BLACK AND WHITE 12 MCG Q 15 MIN LOCKOUT. PT MED WITH DILAUDID 0.5 MG IVP X 1 FOR PAIN. REPORT GIVEN TO TYLOR MAHMOOD-PT TRANSPORTED TO PRE-OP VIA BED WITH RN X 2 @ BEDSIDE.
--- NOTE | 2021-08-10 16:22 | NUR ---
History, Chart, Medications and Allergies reviewed before start of procedure.Lungs clear T/O to Auscultation. Patient confirms NPO status and agrees with scheduled surgery. Pre-Op teaching done. Pt verbalizes understanding.
--- NOTE | 2021-08-10 16:33 | NUR ---
DR ROWE CONSULTED PT IN ICU ROOM
--- NOTE | 2021-08-10 17:34 | NUR ---
08/10/21 3902 Cheryle Drew PATIENT ARRIVED WITH DANIE.
--- NOTE | 2021-08-10 17:40 | NUR ---
PT RETURNED FROM OR @ 1740. S/P RIGHT LEG FASCIOTOMY. SEE ICU PACU DOCUMENTATION. PT IS A&OX4. SHE IS SLEEPY, BUT AWAKENS EASILY TO VOICE.PT DENIES PAIN AT THIS TIME. PT ABLE TO C&DB WELL. LUNGS CLEAR. SATS>90% ON 2 LITERS NASAL CANULA. ECG SHOWS SR WITH RATE 80-90'S. BP STABLE. LEFT FEMORAL ANGIOSEAL SITE REMAINS CLEAR-NO BLEEDING OR HEMATOMA. RIGHT LOWER EXTREMITIY WITH KERLIX DRESSING-SMALL AMOUNT OF SANGINOUS DRAINAGE TO DRESSING. DP/PT PULSES ARE STRONG BILATERALLY. NS @ 100 CC/HR RESUMED, BUT FENTANYL CONTINUOUS ON HOLD AT THIS TIME.
--- NOTE | 2021-08-10 21:53 | NUR ---
ASSUMED CARE AT 1900 PATIENT IS ALERT AND ORIENTED X4. 02 SATS 100% ON RA, DENIES SOB. HR NSR @70s, BP STABLE. PULSES STRONG IN ALL EXTREMETIES. RIGHT FOOT WARM AND PATIENT STATES SOME NUMBNESS PRESENT, ABLE TO MOVE FOOT. DRESSING TO RIGHT LOWER LEG DRY AND INTACT. RIGHT KNEE SWOLLEN, WILL MONITOR FOR CHANGES. PATIENT DENIES PAIN AT THIS TIME. HELTON PATENT AND DRAINING TO GRAVITY. CALL LIGHT IN REACH.
[2021-08-11 03:35] LABS: Hematocrit 26.1 % (33.0-51.0); Hemoglobin 8.3 g/dL (11.5-16.0); Mean Corpuscular HGB 28.4 pg (26.0-34.0); Mean Corpuscular HGB Conc 31.8 g/dL (31.5-36.5); Mean Corpuscular Volume 89 fL (80-100); Mean Platelet Volume 9.6 fL (9.1-12.4); Platelet Count 230 K/mm3 (150-400); RDW Coefficient Variation 13.1 % (11.7-14.2); RDW Standard Deviation 42.6 fL (35.1-46.3); Red Blood Cell Count 2.92 M/mm3 (3.80-5.20); White Blood Cell Count 8.42 K/mm3 (4.00-11.30)
[2021-08-11 03:55] LABS: Albumin, Blood 2.6 g/dL (3.4-5.0); Albumin/Globulin Ratio 0.9 (0.8-1.8); Bilirubin, Total 0.3 mg/dL (0.1-1.0); Bun/Creatinine Ratio 20.8 (12.0-20.0); Calcium, Blood 8.2 mg/dL (8.5-10.1); Creatinine, Blood 0.53 mg/dL (0.40-1.00); Globulin, Blood 2.9 g/dL (2.2-4.0); Potassium, Blood 4.4 mmol/L (3.5-5.5); Total Protein, Blood 5.5 g/dL (6.4-8.2)
--- NOTE | 2021-08-11 06:08 | NUR ---
SHIFT SUMMARY PATIENT IS ALERT AND ORIENTED X4. 02 SATS 96% ON RA. HR AT 70s, BP STABLE. NO CHANGES TO RIGHT LOWER EXTREMETY, PULSES REMAIN STRONG, FOOT WARM, PATIENT ABLE TO MOVE FOOT. DRESSING TO RLE WITH SOME DRAINAGE, REINFORCED THIS AM. PATIENT MEDICATED FOR R LEG PAIN PER EMAR. PATIENT SLEPT MOST THE NIGHT. ABLE TO SHIFT HIPS, ASSISTANCE NEEDED. HELTON PATENT AND DRAINING TO GRAVITY, 1800 OUT THIS SHIFT. CALL LIGHT IN REACH.
--- NOTE | 2021-08-11 07:15 | NUR ---
PT A&OX4. PT DENIES PAIN THIS AM. ECG CONTINUES SR WITH RATE 80'S. SBP TRENDING 110'S-120'S. DP/PT PULSES 2+ BILATERALLY. RIGHT THIGH MEASURED AT DEMARCATED AREA AT 63 CM. THE RIGHT KNEE AND THIGH AREA IS SWOLLEN AND TIGHTER THAN 08/10/21 ASSESSMENTS. RIGHT LEFT KERLIX DRESSING IS C/D/I. LEFT FEMORAL ANGIOSEAL SITE CLEAR-NO BLEEDING, HEMATOMA, OR TENDERNESS NOTED. LUNGS ARE CLEAR. NO NOTED SOB OR COUGH. SATS>90% ON RA. PT DENIES GI DISTRESS AND REQUESTS THAT DIET BE ADVANCED TO REGULAR. PT CONTINUES ON HER MENSES WITH LIGHT SPOTTING. CATH/REGGIE CARE COMPLETED WITH SOAP AND WATER. NEW REGGIE PAD PLACED. HELTON TO BSD WITH ADEQUATE AMOUNT OF CLEAR, YELLOW URINE OUTPUT. WILL MONITOR RIGHT THIGH AND KNEE AREA FOR INCREASED SWELLING (HOURLY). WILL MONITOR DP/PT PULSES HOURLY WELL. ANTICIPATE ORTHO TO CHANGE RIGHT LOWER EXTREMITY DRESSING SOMETIME TODAY.
--- NOTE | 2021-08-11 08:53 | NUR ---
DR. GOLDSTEIN HERE TO SEE PT. FULL UPDATE GIVEN. REPEAT H&H @ 1200. IVF DISCONTINUED.
--- NOTE | 2021-08-11 10:02 | NUR ---
ATTEMPTED TO CONTACT DR. CAI VIA CELL PHONE-NO ANSWER. TEXT MESSAGE SENT TO DR. ROWE REQUESTING THAT SHE CALL ICU [facility]. ATTEMTPING TO DISCUSS DRESSING CHANGE TO RIGHT LOWER EXTREMITY, UPDATE ON INCREASED SWELLING TO RIGHT KNEE AND THIGH AREA, AND PLAN OF CARE/NEED FOR TRANSFER FOR VASCULAR AND ORTHOPEDIC SURGERY.
--- NOTE | 2021-08-11 10:29 | NUR ---
SPOKE WITH DR. CAI REGARDING PLAN OF CARE AND DRESSING CHANGE. DR. CAI TO REACH OUT TO BOTH DR. ROWE AND DR. ESPINOSA.
--- NOTE | 2021-08-11 11:11 | NUR ---
PT REPORTS 5/10 RIGHT LOWER EXTREMITIY PAIN. MED WITH DILAUDID 1 MG IVP X 1-SEE EMAR. PT HAS BEEN RESTING QUIETLY WHEN NOT DISTURBED. NO CHANGE IN RIGHT THIGH MEASUREMENT. DP/PT PULSES 2+ BILATERALLY. DR. ROWE GIVEN FULL UPDATE. SHE HAS SIGNED OFF TO DR. CARVAJAL.
[2021-08-11 12:03] LABS: Hematocrit 24.5 % (33.0-51.0); Hemoglobin 7.6 g/dL (11.5-16.0)
--- NOTE | 2021-08-11 12:30 | NUR ---
DR. GOLDSTEIN UPDATED TO PT H&H-1 UNIT PRBC'S TO BE TRANSFUSED.
--- NOTE | 2021-08-11 13:07 | NUR ---
PT REPORTS 7/10 RIGHT LOWER EXTREMITY PAIN-MED WITH DILAUDID 1 MG IVP X 1. PRBC'S INITIATED PER PROPER CHECKS AND ID-SEE TRANSFUSION RECORD.
--- NOTE | 2021-08-11 13:45 | NUR ---
DR. CARVAJAL HERE TO SEE PT. FULL UPDATE GIVEN. MD AWARE OF THE RIGHT KNEE AND THIGH SWELLING AND CURRENT MEASUREMENT. NO NEW ORDERS. NO DRESSING CHANGE NEEDED TODAY-CHANGE PRN IF SATURATED. DR. CARVAJAL WOULD LIKE PT TO BE TRANSFERED TO A HIGHER LEVEL OF CARE FOR VASCULAR SURGERY AND KNEE RECONSTRUCTION. DR. ROQUE UPDATED. TYLOR ISRAEL CONTACTED TRANSFER COORDINATORS AT FACILITIES THAT PT HAS BEEN WAIT LISTED.
--- NOTE | 2021-08-11 17:26 | NUR ---
PT RESTS INTERMITTENTLY WHEN NOT DISTURBED. RIGHT LEG PAIN CONTROLLED QUITE WELL WITH DILAUDID 1 MG IVP-SEE EMAR. RIGHT LEG SWELLING AND TIGHTNESS UNCHANGED THIS SHIFT. DP/PT PULSES STILL 2+ BILATERALLY. PT TOLERATING PO FOOD AND FLUIDS WELL. URINE OUTPUT 900 CC THIS SHIFT. PT RECEIVED 1 UNIT PRBC'S THIS SHIFT. WILL RECHECK CBC IN AM. WILL CONTACT HOSPITALIST TO DISCUSS TRANSFER STATUS.
--- NOTE | 2021-08-11 18:31 | NUR ---
PT RESTING QUIETLY WHEN NOT DISTURBED. MESSAGE LEFT FOR DR. GOLDSTEIN EARLIER, BUT NO RETURN CALL OR WORD REGARDING TRANSFER STATUS.
--- NOTE | 2021-08-11 20:00 | NUR ---
ASSUMED CARE OF PT AT 1915. REPORT RECEIVED AT BEDSIDE. PT PRESENTS IN BED. SOMEWHAT WITHDRAWN. DOES ACKNOWLEDGE AND PARTICIPATE IN CONVERSATIONS. PT HAS PALPABLE RIGHT LOWER EXTREMITY PEDAL AND POST-TIBIAL PULSES. MEASUREMENT OF RIGHT THIGH AT MARKING WITH OFFGOING RN. REVEALS 61.5 CM WHICH IS SLIGHTLY DECREASED. ENCOURAGED PT TO KEEP LEG ELEVATED TO ASSIST WITH REDUCTION IN SWELLING. WILL DO DRESSING CHANGE THIS EVENING FOR DRESSING SATURATION. WILL REVIEW CHART AND PLAN OF CARE FOR THIS PT.
--- NOTE | 2021-08-11 22:45 | NUR ---
PT WAS MEDICATED WITH 1 MG DILAUDID FOR COMPLAINT OF PAIN TO RIGHT LEG/KNEE. PT STATED THAT THIS WAS HELPING. DID TAKE DRESSING DOWN FROM RIGHT LEG SECONDARY TO SATURATION. SEROUSAINGEOUS IN NATURE. NO FOWL ODOR. DID OPT TO LEAVE GAUZE TO FASCIOTOMY SITES TO RIGHT LEG. ABD PADS PLACED OVER GAUZE, AND SECURED WITH 4 INCH CONFORM GAUZE. ASSISTED BY CADD OPERATOR. PT DID STATE HER PAIN LEVEL HAD INCREASED WITH MOVEMENT AND REMOVING DRESSING. DID MEDICATE PT WITH ADDITIONAL 1 MG DILAUDID. PT CURRENTLY RESTING. RIGHT LEG ELEVATED ON PILLOW, AND FOOT OF BED IS IN ELEVATED POSITION. WILL CONTINUE TO MONITOR. REMAINS WITH GOOD DISTAL CMS CHECKS. LEFT GROIN SITE WITHOUT OOZING OR HEMATOMA. CADD OPERATOR TO ASSIST PT WITH CATH CARE SECONDARY TO PT BEING ON HER MENSES.
--- NOTE | 2021-08-12 00:32 | NUR ---
PT SLEEPING AT THIS TIME. CONTINUES WITH HER RIGHT LEG ELEVATED ON PILLOW. NO COMPLAINTS VOICED AT THIS TIME.
[2021-08-12 04:15] LABS: Hematocrit 25.6 % (33.0-51.0); Hemoglobin 8.2 g/dL (11.5-16.0); Mean Corpuscular HGB 29.2 pg (26.0-34.0); Mean Corpuscular Volume 91 fL (80-100); Mean Platelet Volume 9.8 fL (9.1-12.4); Platelet Count 162 K/mm3 (150-400); RDW Coefficient Variation 13.2 % (11.7-14.2); RDW Standard Deviation 43.9 fL (35.1-46.3); Red Blood Cell Count 2.81 M/mm3 (3.80-5.20); White Blood Cell Count 8.89 K/mm3 (4.00-11.30)
[2021-08-12 04:44] LABS: Albumin, Blood 2.4 g/dL (3.4-5.0); Albumin/Globulin Ratio 0.9 (0.8-1.8); Bilirubin, Total 0.4 mg/dL (0.1-1.0); Bun/Creatinine Ratio 30.2 (12.0-20.0); Calcium, Blood 7.7 mg/dL (8.5-10.1); Creatinine, Blood 0.6 mg/dL (0.40-1.00); Globulin, Blood 2.7 g/dL (2.2-4.0); Percent Saturation 7.5 % (15.0-50.0); Total Protein, Blood 5.1 g/dL (6.4-8.2)
--- NOTE | 2021-08-12 05:59 | NUR ---
MEDICATED PT AGAIN WITH 1 MG DILAUDID FOR COMPLAINT OF 7/10 PAIN TO RIGHT LEG AND KNEE. DRESSING TO LEG CDI. REMAINS WITH GOOD DISTAL CMS CHECKS. PT HAS BEEN ABLE TO REST SOME THIS NIGHT. ACKNOWLEDGES THAT HAVING HER LEG ELEVATED HAS HELPED WITH THE DISCOMFORT. WILL CONTINUE TO MONITOR PT, AND WILL REPORT OFF TO ONCOMING RN.
--- NOTE | 2021-08-12 07:33 | NUR ---
ASSUMPTION OF CARE RECEIVED REPORT FROM JOJO SNIDER AT 0700, ASSUMED CARE OF PATIENT. PATIENT WITH EYES CLOSED, EASILY AWOKE. STATED PAIN 5/10 IN RIGHT LEG, TOLERABLE AT THIS TIME. GIRTH OF RIGHT THIGH MEASURED AT 66CM. SOFT TO TOUCH. AFEBRILE, AND VITALS STABLE ON ROOM AIR. ORDERS REVIEWED, WILL TREAT PRESCRIBED.
--- NOTE | 2021-08-12 14:00 | NUR ---
Spiritual Care Visit - "Things We Care to Know" Pt. is awake in bed and welcomes my visit. Pt. is unsettled about the prognosis of her injury. With a calming presence and theraputic listening Pt. displays evidence of trust. Introduce and execute "Things We Care to Know" survey. Pts. verbal responses establish a platform for rapport to be built. Pt. is open to Prayer. Prayed with Pt. Pt. verbalized gratitude for the spiritual care visit. Will return to post "Things We Care to Know" responses on Pts. room wall. "Things We Care to Know" is a Spiritual Care airplane pilot helper program designed to personalize the Pt./Staff relationship.
--- NOTE | 2021-08-12 15:08 | NUR ---
TRANSFER PATIENT TO TRANSFER TO [facility]. PATIENT A/O. DRESSING CHANGE TO RIGHT LOWER EXTREMITY WITH DRAININAGE S/S. CURRENTLY DRESSING IS C/D/I. REPORT CALLED TO [facility] AND GIVEN TO STEVE SNIDER. ATTEMPTED TO CALL [facility] OFFICE AT 1447, LEFT MESSAGE WITH OUR CALL BACK NUMBER TO NOTIFY OF PATIENT'S TRANSFER. CALLED AND SPOKE TO COUNSELOR JOSUE PER PATIENT'S REQUEST AND NOTIFIED OF TRANSFER TO [facility] GIVING CONTACT INFORMATION FOR THE NEW UNIT PATIENT WILL BE IN. VITALS CURRENTLY STABLE, REMAINS ON ROOM AIR.
== END 2021-08-12 16:18 | disposition short-term general hospital (02) | DRG 253 ==
LOC: ER 17:34 → ICUE 21:51 → ICUW 21:51 → ICUE 08-10 00:50
PROVIDERS: Internal Medicine; Radiology Diagnostic Radiology; Student in an Organized Health Care Education/Training Program; ADMIT Family Medicine
PROC: 047K3ZZ Dilation of Right Femoral Artery, Percutaneous Approach (ICD-10-PCS; principal; 2021-08-09)
PROC: 0KNS0ZZ Release Right Lower Leg Muscle, Open Approach (ICD-10-PCS; 2021-08-09)
PROC: 047M3ZZ Dilation of Right Popliteal Artery, Percutaneous Approach (ICD-10-PCS; 2021-08-09)
PROC: 047P3ZZ Dilation of Right Anterior Tibial Artery, Percutaneous Approach (ICD-10-PCS; 2021-08-09)
PROC: 3E03317 Introduction of Other Thrombolytic into Peripheral Vein, Percutaneous Approach (ICD-10-PCS; 2021-08-09)
PROC: B41F1ZZ Fluoroscopy of Right Lower Extremity Arteries using Low Osmolar Contrast (ICD-10-PCS; 2021-08-09)
DX: I70.221 Atherosclerosis of native arteries of extremities with rest pain, right leg (principal); T79.A21A Traumatic compartment syndrome of right lower extremity, initial encounter; S82.831A Other fracture of upper and lower end of right fibula, initial encounter for closed fracture; D64.9 Anemia, unspecified; I10 Essential (primary) hypertension; F15.10 Other stimulant abuse, uncomplicated; S83.104A Unspecified dislocation of right knee, initial encounter; J45.909 Unspecified asthma, uncomplicated; F32.A Depression, unspecified; E78.5 Hyperlipidemia, unspecified; F17.210 Nicotine dependence, cigarettes, uncomplicated; Z20.822 Contact with and (suspected) exposure to COVID-19; Z88.1 Allergy status to other antibiotic agents; Z88.2 Allergy status to sulfonamides; Z79.82 Long term (current) use of aspirin; Z79.899 Other long term (current) drug therapy; V29.9XXA Motorcycle rider (driver) (passenger) injured in unspecified traffic accident, initial encounter; Z86.73 Personal history of transient ischemic attack (TIA), and cerebral infarction without residual deficits; Z98.51 Tubal ligation status; Z90.49 Acquired absence of other specified parts of digestive tract
CPT/HCPCS: 0241U; 29505; 36415; 36430; 37211; 37214; 37224; 37226; 37228; 51702; 73560-RT; 73706; 75625; 75716; 75774; 76937; 80048; 80053; 81001; 82550; 82553; 82728; 83540; 83550; 83605; 85014; 85018; 85025; 85027; 85384; 85520; 85610; 85730; 86850; 86900; 86901; 86920; 96365-59; 96375-59; 99152; 99153; 99285-25; A9270; C1725; C1751; C1757; C1760; C1769; C1874; C1887; C1894; J0330; J1100; J1170; J1644; J1650; J2250; J2405; J2704; J2916; J2997; J3010; J7030; J7040; J7120; P9016; Q9967

== ENCOUNTER → 2021-09-21 | Day surgery (SDC) | payer OTHER, MEDICARE ==
[~2021-09-21] MED LIST changes: +BUSPIRONE HCL10 M6 PO; +NEURONTIN300 MG PO
== END ==
LOC: WOUND 02:21
DX: S81.001A Unspecified open wound, right knee, initial encounter (principal); S83.104D Unspecified dislocation of right knee, subsequent encounter; J45.909 Unspecified asthma, uncomplicated; I10 Essential (primary) hypertension; Z88.2 Allergy status to sulfonamides; Z87.891 Personal history of nicotine dependence; V19.9XXA Pedal cyclist (driver) (passenger) injured in unspecified traffic accident, initial encounter
CPT/HCPCS: A9270; G0463

== ENCOUNTER 2021-09-24 11:46 | Emergency (ER) | payer MEDICARE, OTHER ==
[~2021-09-24] VITALS: Ht 157.5 cm; Wt 99.8 kg
[2021-09-24 12:53] LABS: BASOPHILS ABSOLUTE AUTO 0.04 K/mm3 (0.00-0.23); BASOPHILS PERCENT AUTO 0 % (0-2); EOSINOPHILS ABSOLUTE AUTO 0.22 K/mm3 (0.00-0.68); EOSINOPHILS PERCENT AUTO 2 % (0-6); Hematocrit 38.6 % (33.0-51.0); Hemoglobin 11.7 g/dL (11.5-16.0); IMMATURE GRAN ABSOLUTE AUTO 0.02 K/mm3 (0.00-0.10); IMMATURE GRAN PERCENT AUTO 0 % (0-1); LYMPHOCYTES ABSOLUTE AUTO 2.01 K/mm3 (0.84-5.20); LYMPHOCYTES PERCENT AUTO 22 % (21-46); MONOCYTES PERCENT AUTO 5 % (4-13); Mean Corpuscular HGB 25.7 pg (26.0-34.0); Mean Corpuscular HGB Conc 30.3 g/dL (31.5-36.5); Mean Corpuscular Volume 85 fL (80-100); NEUTROPHILS ABSOLUTE AUTO 6.42 K/mm3 (1.96-9.15); NEUTROPHILS PERCENT AUTO 70 % (41-73); Platelet Count 368 K/mm3 (150-400); RDW Coefficient Variation 14.6 % (11.7-14.2); RDW Standard Deviation 44.9 fL (35.1-46.3); Red Blood Cell Count 4.55 M/mm3 (3.80-5.20); White Blood Cell Count 9.21 K/mm3 (4.00-11.30)
[2021-09-24 13:09] LABS: Albumin, Blood 3.4 g/dL (3.4-5.0); Albumin/Globulin Ratio 0.7 (0.8-1.8); Bilirubin, Total 0.3 mg/dL (0.1-1.0); Bun/Creatinine Ratio 27.8 (12.0-20.0); C-REACTIVE PROTEIN, EXT RANGE 3.88 mg/dL (0.000-0.300); Calcium, Blood 8.9 mg/dL (8.5-10.1); Creatinine, Blood 0.58 mg/dL (0.40-1.00); Globulin, Blood 4.6 g/dL (2.2-4.0); Potassium, Blood 4.1 mmol/L (3.5-5.5)
[2021-09-24] MEDS ORDERED: Mupirocin22 GM TOP (15:36)
[2021-09-24] MEDS ORDERED: CLIN300 PO (15:36)
== END 2021-09-24 15:58 | disposition home or self-care (01) ==
LOC: ER 11:46
PROVIDERS: Physician Assistant
DX: T81.49XA Infection following a procedure, other surgical site, initial encounter (principal); Z79.82 Long term (current) use of aspirin; Z79.899 Other long term (current) drug therapy; Y83.8 Other surgical procedures as the cause of abnormal reaction of the patient, or of later complication, without mention of misadventure at the time of the procedure
CPT/HCPCS: 36415; 73701; 80053; 85025; 86140; A9270; J1885; Q9967

== ENCOUNTER 2021-09-28 01:01 | Day surgery (SDC) | payer MEDICARE, OTHER ==
[~2021-09-28 01:01] MED LIST changes: +CLIN300 PO; +Mupirocin22 GM TOP
== END 2021-09-28 23:32 | disposition home or self-care (01) ==
LOC: WOUND 01:01
DX: L97.812 Non-pressure chronic ulcer of other part of right lower leg with fat layer exposed (principal); T81.31XD Disruption of external operation (surgical) wound, not elsewhere classified, subsequent encounter; S83.104D Unspecified dislocation of right knee, subsequent encounter; V19.9XXD Pedal cyclist (driver) (passenger) injured in unspecified traffic accident, subsequent encounter
CPT/HCPCS: A9270

== ENCOUNTER 2021-10-12 01:18 | Day surgery (SDC) | payer MEDICARE, OTHER | END 2021-10-12 23:04 | disposition home or self-care (01) | LOC: WOUND 01:18 | DX: S81.801D Unspecified open wound, right lower leg, subsequent encounter (principal); L97.812 Non-pressure chronic ulcer of other part of right lower leg with fat layer exposed; Y93.55 Activity, bike riding | CPT/HCPCS: A9270; G0463 ==

== ENCOUNTER 2021-10-19 01:06 | Day surgery (SDC) | payer MEDICARE, OTHER | END 2021-10-19 23:39 | disposition home or self-care (01) | LOC: WOUND 01:06 | DX: L97.812 Non-pressure chronic ulcer of other part of right lower leg with fat layer exposed (principal); S83.104D Unspecified dislocation of right knee, subsequent encounter; X58.XXXD Exposure to other specified factors, subsequent encounter; T81.30XD Disruption of wound, unspecified, subsequent encounter | CPT/HCPCS: A9270; G0463 ==

== ENCOUNTER → 2021-10-20 | Outpatient (CLI) | payer MEDICARE, OTHER | END | disposition home or self-care (01) | LOC: LAB SHORT 15:52 → LAB 15:52 | DX: R30.9 Painful micturition, unspecified (principal) | CPT/HCPCS: 87086 ==

== ENCOUNTER 2021-10-26 01:59 | Day surgery (SDC) | payer MEDICARE, OTHER | END 2021-10-26 23:25 | disposition home or self-care (01) | LOC: WOUND 01:59 | DX: T81.31XD Disruption of external operation (surgical) wound, not elsewhere classified, subsequent encounter (principal); L97.812 Non-pressure chronic ulcer of other part of right lower leg with fat layer exposed | CPT/HCPCS: G0463 ==

== ENCOUNTER 2021-11-02 03:29 | Day surgery (SDC) | payer MEDICARE, OTHER | END 2021-11-02 22:51 | disposition home or self-care (01) | LOC: WOUND 03:29 | DX: L97.812 Non-pressure chronic ulcer of other part of right lower leg with fat layer exposed (principal); T81.31XD Disruption of external operation (surgical) wound, not elsewhere classified, subsequent encounter; Y83.4 Other reconstructive surgery as the cause of abnormal reaction of the patient, or of later complication, without mention of misadventure at the time of the procedure; S83.104D Unspecified dislocation of right knee, subsequent encounter; V19.9XXD Pedal cyclist (driver) (passenger) injured in unspecified traffic accident, subsequent encounter | CPT/HCPCS: A9270; G0463 ==

== ENCOUNTER 2021-11-16 07:46 | Day surgery (SDC) | payer MEDICARE, OTHER | END 2021-11-16 23:36 | disposition home or self-care (01) | LOC: WOUND 07:46 | DX: Z09 Encounter for follow-up examination after completed treatment for conditions other than malignant neoplasm (principal) | CPT/HCPCS: A9270; G0463 ==

== ENCOUNTER 2022-05-26 19:00 | Emergency (ER) | payer MEDICARE, OTHER ==
[~2022-05-26] VITALS: Ht 157.5 cm; Wt 99.8 kg
== END 2022-05-26 19:33 | disposition home or self-care (01) ==
LOC: ER 19:00
DX: S09.90XA Unspecified injury of head, initial encounter (principal); I10 Essential (primary) hypertension; F17.200 Nicotine dependence, unspecified, uncomplicated; W22.8XXA Striking against or struck by other objects, initial encounter; Z88.2 Allergy status to sulfonamides; Z88.1 Allergy status to other antibiotic agents; Z79.899 Other long term (current) drug therapy; Z79.82 Long term (current) use of aspirin; Z86.73 Personal history of transient ischemic attack (TIA), and cerebral infarction without residual deficits
CPT/HCPCS: 99282

== ENCOUNTER 2022-12-28 23:50 | Emergency (ER) | payer MEDICARE, OTHER ==
[~2022-12-28] VITALS: Ht 157.5 cm; Wt 99.8 kg
[2022-12-29] MEDS ORDERED: ATOR40TA PO (00:35)
[2022-12-29] MEDS ORDERED: NEURONTIN300 MG PO (00:35)
[2022-12-29] MEDS ORDERED: VILAZODONE HCL40 MG PO (00:36)
[2022-12-29 02:00] VITALS: BP 174/105
[2022-12-29] MEDS ORDERED: Ibuprofen600 MG PO (04:08)
== END 2022-12-29 04:39 | disposition home or self-care (01) ==
LOC: ER 23:50
DX: S86.911A Strain of unspecified muscle(s) and tendon(s) at lower leg level, right leg, initial encounter (principal); X50.1XXA Overexertion from prolonged static or awkward postures, initial encounter; Z88.1 Allergy status to other antibiotic agents; Z88.2 Allergy status to sulfonamides; Z79.82 Long term (current) use of aspirin; Z79.899 Other long term (current) drug therapy; I10 Essential (primary) hypertension; E78.5 Hyperlipidemia, unspecified; J45.909 Unspecified asthma, uncomplicated; Z86.73 Personal history of transient ischemic attack (TIA), and cerebral infarction without residual deficits; F17.200 Nicotine dependence, unspecified, uncomplicated
CPT/HCPCS: 73562-RT; 93926; 93971; 99284-25; A9270; J1885

== ENCOUNTER 2023-07-06 19:35 | Emergency (ER) | payer MEDICARE, OTHER ==
[~2023-07-06] VITALS: Ht 157.5 cm; Wt 99.8 kg
[~2023-07-06 19:35] MED LIST changes: +Ibuprofen600 MG PO; +VILAZODONE HCL40 MG PO
[2023-07-06 20:07] VITALS: BP 174/101
== END 2023-07-06 22:10 | disposition home or self-care (01) ==
LOC: ER 19:35
DX: M25.532 Pain in left wrist (principal); Z88.1 Allergy status to other antibiotic agents; Z88.2 Allergy status to sulfonamides; Z79.899 Other long term (current) drug therapy; Z79.82 Long term (current) use of aspirin; I10 Essential (primary) hypertension; E78.00 Pure hypercholesterolemia, unspecified; F17.210 Nicotine dependence, cigarettes, uncomplicated
CPT/HCPCS: 73100; 99283-25

== ENCOUNTER 2023-09-28 22:58 | Emergency (ER) | payer MEDICARE, OTHER ==
[~2023-09-28] VITALS: Ht 157.5 cm; Wt 99.8 kg
[2023-09-28 23:01] VITALS: BP 152/89
[2023-09-28 23:22] LABS: BASOPHILS ABSOLUTE AUTO 0.05 K/mm3 (0.00-0.23); BASOPHILS PERCENT AUTO 1 % (0-2); EOSINOPHILS ABSOLUTE AUTO 0.28 K/mm3 (0.00-0.68); EOSINOPHILS PERCENT AUTO 3 % (0-6); Hematocrit 37.2 % (33.0-51.0); Hemoglobin 11.9 g/dL (11.5-16.0); IMMATURE GRAN ABSOLUTE AUTO 0.01 K/mm3 (0.00-0.10); IMMATURE GRAN PERCENT AUTO 0 % (0-1); LYMPHOCYTES ABSOLUTE AUTO 2.88 K/mm3 (0.84-5.20); LYMPHOCYTES PERCENT AUTO 32 % (21-46); MONOCYTES ABSOLUTE AUTO 0.77 K/mm3 (0.16-1.47); MONOCYTES PERCENT AUTO 8 % (4-13); Mean Corpuscular HGB 27.5 pg (26.0-34.0); Mean Corpuscular Volume 86 fL (80-100); NEUTROPHILS ABSOLUTE AUTO 5.14 K/mm3 (1.96-9.15); NEUTROPHILS PERCENT AUTO 56 % (41-73); Platelet Count 263 K/mm3 (150-400); RDW Coefficient Variation 13.7 % (11.7-14.2); RDW Standard Deviation 43.5 fL (35.1-46.3); Red Blood Cell Count 4.32 M/mm3 (3.80-5.20); White Blood Cell Count 9.13 K/mm3 (4.00-11.30)
[2023-09-28 23:49] LABS: Albumin, Blood 3.4 g/dL (3.4-5.0); Albumin/Globulin Ratio 0.9 (0.8-1.8); Bilirubin, Total 0.4 mg/dL (0.1-1.0); Bun/Creatinine Ratio 16.7 (12.0-20.0); Calcium, Blood 8.3 mg/dL (8.5-10.1); Creatinine, Blood 0.72 mg/dL (0.40-1.00); Globulin, Blood 3.7 g/dL (2.2-4.0); Potassium, Blood 3.2 mmol/L (3.5-5.5); Total Protein, Blood 7.1 g/dL (6.4-8.2)
[2023-09-29] MEDS ORDERED: Methocarbamol 500 MG Tab PO ONE (00:10)
[2023-09-29] MEDS ORDERED: Ondansetron 4 MG SoluTab SL ONE (00:10)
[2023-09-29] MEDS ORDERED: Acetaminophen 500 MG Tab PO ONE (00:10)
[2023-09-29] MEDS ORDERED: Ketorolac Tromethamine 30mg Vial IM ONE (00:10)
[2023-09-29] MEDS ORDERED: Gabapentin 300 MG Cap PO ONE (00:10)
[2023-09-29] MEDS ORDERED: Potassium Chloride 20 MEQ/15 ML UDC PO ONE (00:15)
[2023-09-29] MEDS ORDERED: Robaxin750 MG PO (01:24)
[2023-09-29] MEDS ORDERED: GABA300 PO (01:24)
== END 2023-09-29 01:31 | disposition home or self-care (01) ==
LOC: ER 22:58
PROVIDERS: Student in an Organized Health Care Education/Training Program
DX: M54.50 Low back pain, unspecified (principal); G89.29 Other chronic pain; R25.2 Cramp and spasm; E87.6 Hypokalemia; Z88.2 Allergy status to sulfonamides; Z88.1 Allergy status to other antibiotic agents; Z79.899 Other long term (current) drug therapy; Z79.82 Long term (current) use of aspirin; J45.909 Unspecified asthma, uncomplicated; I10 Essential (primary) hypertension; E78.5 Hyperlipidemia, unspecified; F17.210 Nicotine dependence, cigarettes, uncomplicated
CPT/HCPCS: 36415; 80053; 85025; 96372; 99283; A9270; J1885

== ENCOUNTER 2024-01-03 21:14 | Emergency (ER) | payer MEDICARE, OTHER ==
[~2024-01-03] VITALS: Ht 160 cm; Wt 90.7 kg
[~2024-01-03 21:14] MED LIST changes: +GABA300 PO; +Robaxin750 MG PO
[2024-01-03 21:59] VITALS: BP 158/105
== END 2024-01-04 00:41 | disposition home or self-care (01) ==
LOC: ER 21:14
DX: S00.212A Abrasion of left eyelid and periocular area, initial encounter (principal); S00.211A Abrasion of right eyelid and periocular area, initial encounter; J45.909 Unspecified asthma, uncomplicated; I10 Essential (primary) hypertension; E78.5 Hyperlipidemia, unspecified; F17.210 Nicotine dependence, cigarettes, uncomplicated; Y04.8XXA Assault by other bodily force, initial encounter; Z86.73 Personal history of transient ischemic attack (TIA), and cerebral infarction without residual deficits; Z79.82 Long term (current) use of aspirin; Z79.51 Long term (current) use of inhaled steroids; Z79.899 Other long term (current) drug therapy; Z88.2 Allergy status to sulfonamides; Z88.1 Allergy status to other antibiotic agents
CPT/HCPCS: 99283

== ENCOUNTER 2024-02-15 13:34 | Day surgery (SDC) | payer MEDICARE, OTHER ==
[~2024-02-15 13:34] MED LIST changes: +Lactated Ringer's 1,000 ML IV ONE; +Lidocaine HCl/Pf 1% 5 ML VIAL ONE
[2024-02-15] MEDS ORDERED: TRAM50 (14:12)
[2024-02-15] MEDS ORDERED: TRAZ50 (14:12)
[2024-02-15] MEDS ORDERED: Midazolam HCl 1MG / ML 2ML Vial ONE (14:58)
[2024-02-15] MEDS ORDERED: Lactated Ringer's 1,000 ML IV ONE (15:03)
[2024-02-15] MEDS ORDERED: Benzocaine Oral Spray 0.5ML UD ONE (15:10)
[2024-02-15] MEDS ORDERED: propofoL 50 ML IV ONE (15:14)
[2024-02-15 16:56] VITALS: BP 130/89
== END 2024-02-15 16:45 | disposition home or self-care (01) ==
LOC: ORSCSDS 13:34
PROVIDERS: Internal Medicine Gastroenterology
PROC: 0DB68ZX Excision of Stomach, Via Natural or Artificial Opening Endoscopic, Diagnostic (ICD-10-PCS; principal; 2024-02-15 14:45)
PROC: 0DBK8ZX Excision of Ascending Colon, Via Natural or Artificial Opening Endoscopic, Diagnostic (ICD-10-PCS; principal; 2024-02-15 14:45)
DX: R19.4 Change in bowel habit (principal); K21.9 Gastro-esophageal reflux disease without esophagitis; R11.2 Nausea with vomiting, unspecified; Z80.0 Family history of malignant neoplasm of digestive organs; D12.2 Benign neoplasm of ascending colon; K29.70 Gastritis, unspecified, without bleeding; K44.9 Diaphragmatic hernia without obstruction or gangrene; R10.9 Unspecified abdominal pain; I10 Essential (primary) hypertension; E78.5 Hyperlipidemia, unspecified; E88.810 Metabolic syndrome; I63.9 Cerebral infarction, unspecified; F32.A Depression, unspecified; F41.9 Anxiety disorder, unspecified; E66.9 Obesity, unspecified; Z68.39 Body mass index [BMI] 39.0-39.9, adult; Z79.899 Other long term (current) drug therapy
CPT/HCPCS: 88305; A9270; J2003; J2250; J2704; J7120

== ENCOUNTER → 2024-03-07 | Outpatient (CLI) | payer MEDICARE, OTHER ==
[~2024-03-07] MED LIST changes: -Lactated Ringer's 1,000 ML IV ONE; -Lidocaine HCl/Pf 1% 5 ML VIAL ONE; +TRAM50; +TRAZ50
[2024-03-07 13:49] LABS: BASOPHILS ABSOLUTE AUTO 0.06 K/mm3 (0.00-0.23); BASOPHILS PERCENT AUTO 1 % (0-2); EOSINOPHILS ABSOLUTE AUTO 0.08 K/mm3 (0.00-0.68); EOSINOPHILS PERCENT AUTO 1 % (0-6); Hematocrit 39.7 % (33.0-51.0); Hemoglobin 12.6 g/dL (11.5-16.0); IMMATURE GRAN ABSOLUTE AUTO 0.02 K/mm3 (0.00-0.10); IMMATURE GRAN PERCENT AUTO 0 % (0-1); LYMPHOCYTES ABSOLUTE AUTO 2.53 K/mm3 (0.84-5.20); LYMPHOCYTES PERCENT AUTO 28 % (21-46); MONOCYTES ABSOLUTE AUTO 0.69 K/mm3 (0.16-1.47); MONOCYTES PERCENT AUTO 8 % (4-13); Mean Corpuscular HGB 26.6 pg (26.0-34.0); Mean Corpuscular HGB Conc 31.7 g/dL (31.5-36.5); Mean Corpuscular Volume 84 fL (80-100); Mean Platelet Volume 9.8 fL (9.1-12.4); NEUTROPHILS ABSOLUTE AUTO 5.58 K/mm3 (1.96-9.15); NEUTROPHILS PERCENT AUTO 62 % (41-73); Platelet Count 298 K/mm3 (150-400); RDW Coefficient Variation 14.5 % (11.7-14.2); RDW Standard Deviation 43.8 fL (35.1-46.3); Red Blood Cell Count 4.73 M/mm3 (3.80-5.20); White Blood Cell Count 8.96 K/mm3 (4.00-11.30)
[2024-03-07 13:58] LABS: Albumin, Blood 3.5 g/dL (3.4-5.0); Albumin/Globulin Ratio 0.9 (0.8-1.8); Bilirubin, Total 0.5 mg/dL (0.1-1.0); Bun/Creatinine Ratio 12.8 (12.0-20.0); Calcium, Blood 8.3 mg/dL (8.5-10.1); Creatinine, Blood 0.86 mg/dL (0.40-1.00); Globulin, Blood 3.8 g/dL (2.2-4.0); Potassium, Blood 3.1 mmol/L (3.5-5.5); Total Protein, Blood 7.3 g/dL (6.4-8.2)
== END ==
LOC: LAB 13:44 → LAB SHORT 13:44
PROVIDERS: Emergency Medicine
DX: I10 Essential (primary) hypertension (principal)
CPT/HCPCS: 80053; 85025

== ENCOUNTER 2024-06-08 21:43 | Emergency (ER) | payer MEDICARE, OTHER ==
[~2024-06-08] VITALS: Ht 157.5 cm; Wt 99.8 kg
[2024-06-08] MEDS ORDERED: Albuterol 2.5 MG/3 ML VIAL INH SCH (22:10)
[2024-06-08] MEDS ORDERED: MethylPREDNISolone Sod Succ 125 MG Vial IV ONE (22:10)
[2024-06-08] MEDS ORDERED: Ketorolac Tromethamine 30mg Vial IV ONE (22:10)
[2024-06-08 23:04] LABS: BASOPHILS ABSOLUTE AUTO 0.04 K/mm3 (0.00-0.23); BASOPHILS PERCENT AUTO 0 % (0-2); EOSINOPHILS ABSOLUTE AUTO 0.26 K/mm3 (0.00-0.68); EOSINOPHILS PERCENT AUTO 2 % (0-6); Hematocrit 38.7 % (33.0-51.0); Hemoglobin 12.4 g/dL (11.5-16.0); IMMATURE GRAN ABSOLUTE AUTO 0.03 K/mm3 (0.00-0.10); IMMATURE GRAN PERCENT AUTO 0 % (0-1); LYMPHOCYTES ABSOLUTE AUTO 2.49 K/mm3 (0.84-5.20); LYMPHOCYTES PERCENT AUTO 22 % (21-46); MONOCYTES ABSOLUTE AUTO 0.78 K/mm3 (0.16-1.47); MONOCYTES PERCENT AUTO 7 % (4-13); Mean Corpuscular HGB 26.3 pg (26.0-34.0); Mean Corpuscular Volume 82 fL (80-100); Mean Platelet Volume 9.4 fL (9.1-12.4); NEUTROPHILS ABSOLUTE AUTO 7.94 K/mm3 (1.96-9.15); NEUTROPHILS PERCENT AUTO 69 % (41-73); Platelet Count 413 K/mm3 (150-400); RDW Coefficient Variation 13.3 % (11.7-14.2); RDW Standard Deviation 39.8 fL (35.1-46.3); Red Blood Cell Count 4.71 M/mm3 (3.80-5.20); White Blood Cell Count 11.54 K/mm3 (4.00-11.30)
[2024-06-08 23:24] LABS: Albumin, Blood 2.8 g/dL (3.4-5.0); Albumin/Globulin Ratio 0.6 (0.8-1.8); Bilirubin, Total 0.3 mg/dL (0.1-1.0); Bun/Creatinine Ratio 15.2 (12.0-20.0); Calcium, Blood 8.8 mg/dL (8.5-10.1); Creatinine, Blood 0.73 mg/dL (0.40-1.00); Globulin, Blood 4.8 g/dL (2.2-4.0); Potassium, Blood 3.2 mmol/L (3.5-5.5); Total Protein, Blood 7.6 g/dL (6.4-8.2)
[2024-06-08] MEDS ORDERED: NS 1,000 ML IV SCH (23:30)
[2024-06-08 23:40] LABS: Influenza A, PCR NEGATIVE (NEGATIVE); Influenza B, PCR NEGATIVE (NEGATIVE); Resp Syncytial Virus, PCR NEGATIVE (NEGATIVE); SARS-Cov-2 (COVID-19) PCR, MMC NEGATIVE (NEGATIVE)
[2024-06-09] MEDS ORDERED: IBU600 MG PO (01:29)
[2024-06-09] MEDS ORDERED: Ondansetron Odt8 MG MM (01:29)
[2024-06-09 01:52] VITALS: BP 124/66
== END 2024-06-09 01:59 | disposition home or self-care (01) ==
LOC: ER 21:43
PROVIDERS: Emergency Medicine
DX: B34.9 Viral infection, unspecified (principal); I10 Essential (primary) hypertension; E78.5 Hyperlipidemia, unspecified; J45.909 Unspecified asthma, uncomplicated; F17.210 Nicotine dependence, cigarettes, uncomplicated; Z88.2 Allergy status to sulfonamides; Z88.1 Allergy status to other antibiotic agents; Z79.899 Other long term (current) drug therapy; Z79.82 Long term (current) use of aspirin
CPT/HCPCS: 0241U; 71046; 80053; 82550; 83605; 85025; 94640; 94664; 96374; 96375; 99285-25; J1885; J2919; J7030

== ENCOUNTER 2024-08-08 12:39 | Day surgery (SDC) | payer MEDICARE, OTHER ==
[~2024-08-08] VITALS: Ht 157.5 cm; Wt 94.6 kg
[~2024-08-08 12:39] MED LIST changes: +FURO20 PO; +IBU600 MG PO; +Lactated Ringer's 1,000 ML IV ONE; +Ondansetron Odt8 MG MM
[2024-08-08] MEDS ORDERED: ALBU2.5V5 (13:20)
[2024-08-08] MEDS ORDERED: FLUT1DIS2 (13:20)
[2024-08-08] MEDS ORDERED: Midazolam HCl 1MG / ML 2ML Vial ONE (13:35)
[2024-08-08] MEDS ORDERED: propofoL 50 ML IV ONE (13:40)
[2024-08-08] MEDS ORDERED: Lactated Ringer's 1,000 ML IV ONE (13:40)
[2024-08-08 14:29] VITALS: BP 114/72
--- NOTE | 2024-08-08 15:24 | NUR ---
08/08/24 1524 [place] EXTENDED RECOVERY PT KEPT FALLING BACK TO SLEEP AFTER PROCEDURE
== END 2024-08-08 15:05 | disposition home or self-care (01) ==
LOC: ORSCSDS 12:39
PROVIDERS: Internal Medicine Gastroenterology
PROC: 0DJD8ZZ Inspection of Lower Intestinal Tract, Via Natural or Artificial Opening Endoscopic (ICD-10-PCS; principal; 2024-08-08 14:00)
DX: Z12.11 Encounter for screening for malignant neoplasm of colon (principal); Z86.0100 Personal history of colon polyps, unspecified; Z80.0 Family history of malignant neoplasm of digestive organs; I10 Essential (primary) hypertension; E78.5 Hyperlipidemia, unspecified; K21.9 Gastro-esophageal reflux disease without esophagitis; F41.9 Anxiety disorder, unspecified; F32.A Depression, unspecified; E66.01 Morbid (severe) obesity due to excess calories; Z68.38 Body mass index [BMI] 38.0-38.9, adult; Z79.82 Long term (current) use of aspirin; Z79.899 Other long term (current) drug therapy
CPT/HCPCS: J2250; J2704; J7120

== ENCOUNTER 2024-09-01 12:22 | Day surgery (SDC) | payer MEDICARE, OTHER ==
[~2024-09-01] VITALS: Ht 157.5 cm; Wt 93.6 kg
[~2024-09-01 12:22] MED LIST changes: +ALBU2.5V5; +Bupivacaine 0.5% W/EPI 1:200000 SDV 30 ML Vial ONE; +Clindamycin 900mg in D5W 50ML 50 ML IV ONE; +FURO40 PO; +Gentamicin Sulfate 100 MG in NS 100 ML IV SCH; -Lactated Ringer's 1,000 ML IV ONE; +Lactated Ringer's 1,000 ML IV SCH; -TRAM50; -TRAZ50; +TRAZ50 PO
[2024-09-01 12:47] VITALS: BP 141/97
[2024-09-01 13:36] LABS: U Amphetamine Screen DETECTED; U Barbituate Screen Not Detected; U Benzodiazapine Screen Not Detected; U Buprenorphine Screen Not Detected; U Cannabinoids Screen DETECTED; U Cocaine Screen Not Detected; U Methadone Screen Not Detected; U Methamphetamine Screen DETECTED; U Opiates Screen Not Detected; U Oxycodone Screen Not Detected; U Phencyclidine Screen Not Detected
--- NOTE | 2024-09-01 13:56 | NUR ---
PT. URINE TOX SCREEN + FOR METH. DR. MCALLISTER AT BS TO SEE PT. SURGERY CANCELED. PT INSTRUCTED TO STOP USING METH, THE OFFICE WILL CALL HER FOR RESCHEDULING AND SHE WILL NEED FURTHER DRUG SCREENS IN ORDER TO HAVE SURGERY IN THE FUTURE. VONDA RNC
--- NOTE | 2024-09-01 14:01 | NUR ---
LATE ENTRY FOR 1250. PT REPORTS DRINKING WATER AT [address] TO THE PROCEDURE TODAY. SHE REPORTS "ONLY WATER AND ONLY A SMALL AMOUNT". SHE IS ALSO REPORTING TAKING IBUPROFEN AND A BABY ASPIRIN ON 08/30/24. SHE ADMITS TO DAILY MARIJUANNA USE LAST USED ON THE 08/31/24 IN THE PM AND REPORTS METH USE WAS LAST ON 08/26/24. DR MCALLISTER AND ANESTHESIA PROVIDER NOTIFIED OF USE. DR MCALLISTER ORDERED STAT UA. PT WAS ABLE TO URINATE INDEPENDENTLY. UA SENT OFF TO THE LAB AND PT BACK IN BED WITH WARM BLANKET PROVIDED AND CALL LIGHT IN REACH. 2 IV'S ATTEMPTED AND BOTH FAILED. VEIN BLEW. COBAN AND 2X2'S PLACED OVER BOTH SITES. PT TOW.
== END 2024-09-01 23:00 | disposition home or self-care (01) ==
LOC: ORSCMMR 12:22 → ORD 12:30 → ORSCMMR 12:30
PROVIDERS: Obstetrics & Gynecology
DX: N80.03 Adenomyosis of the uterus (principal); Z53.9 Procedure and treatment not carried out, unspecified reason; F12.20 Cannabis dependence, uncomplicated; F15.20 Other stimulant dependence, uncomplicated
CPT/HCPCS: 93005; 93010; J1580; J7120

== ENCOUNTER 2024-10-13 11:11 | Day surgery (SDC) | payer MEDICARE, OTHER ==
[~2024-10-13] VITALS: Ht 157.5 cm; Wt 92.4 kg
[2024-10-13] VITALS (10 sets, daily range): BP systolic 108–134; BP diastolic 60–88
[~2024-10-13 11:11] MED LIST changes: -ALBU2.5V5; +ALBU2.5V5 INH; -Bupivacaine 0.5% W/EPI 1:200000 SDV 30 ML Vial ONE; -Clindamycin 900mg in D5W 50ML 50 ML IV ONE; -Gentamicin Sulfate 100 MG in NS 100 ML IV SCH; -Lactated Ringer's 1,000 ML IV SCH
[2024-10-13] MEDS ORDERED: Clindamycin 900mg in D5W 50ML 50 ML IV SCH (11:25)
[2024-10-13] MEDS ORDERED: Ketorolac Tromethamine 30mg Vial ONE (12:05)
[2024-10-13] MEDS ORDERED: Ondansetron HCl 2 MG / ML 2ML Vial ONE (12:05)
[2024-10-13] MEDS ORDERED: FentaNYL Citrate 50 MCG/ML 5 ML Injection ONE (12:05)
[2024-10-13] MEDS ORDERED: Dexamethasone Sod Phos 10 MG/ML 1ML VIAL ONE (12:05)
--- NOTE | 2024-10-13 12:23 | NUR ---
History, Chart, Medications and Allergies reviewed before start of procedure. Pre-Op teaching done. Pt verbalizes understanding. Ambulatory in Day Surgery. Patient confirms NPO status and agrees with scheduled surgery. Patient States Post-Procedure ride home has been arranged.
[2024-10-13 12:40] LABS: U Cannabinoids Screen DETECTED
[2024-10-13 12:41] LABS: U Amphetamine Screen Not Detected; U Barbituate Screen Not Detected; U Benzodiazapine Screen Not Detected; U Buprenorphine Screen Not Detected; U Cocaine Screen Not Detected; U Methadone Screen Not Detected; U Methamphetamine Screen Not Detected; U Opiates Screen Not Detected; U Oxycodone Screen Not Detected; U Phencyclidine Screen Not Detected
[2024-10-13] MEDS ORDERED: Bupivacaine 0.5% W/EPI 1:200000 SDV 30 ML Vial ONE (12:52)
--- NOTE | 2024-10-13 14:13 | NUR ---
10/13/24 1413 Betty Matthews GENTAMYCIN 100MG IV GIVEN BY DR. HENRIQUEZ AT 1400.
[2024-10-13] MEDS ORDERED: Sugammadex Sodium 200 MG/2ML SDV (100 MG/ML) ONE (14:39)
[2024-10-13] MEDS ORDERED: Albuterol 2.5 MG/3 ML VIAL INH PRN (14:50)
[2024-10-13] MEDS ORDERED: Naloxone HCl 0.4MG / ML 1ML Vial IV PRN (14:55)
[2024-10-13] MEDS ORDERED: Ondansetron HCl 2 MG / ML 2ML Vial IV PRN (14:55)
[2024-10-13] MEDS ORDERED: HYDROmorphone HCl/Pf 1MG SYR IV PRN (14:55)
[2024-10-13] MEDS ORDERED: Metoclopramide HCl 5MG / ML 2ML Vial IV PRN (15:00)
[2024-10-13] MEDS ORDERED: Formoterol/Mometasone MDI 5/100 mcg 13 GM INH SCH (15:05)
[2024-10-13] MEDS ORDERED: Ketorolac Tromethamine 30mg Vial IV PRN (15:05)
--- NOTE | 2024-10-13 15:23 | NUR ---
ASSUMED CARE OF PT AT 1510. PT FELT THE URGE TO HAVE A BM ON ARRIVAL. PT WAS ABLE TO AMBULATE TO TOILET WITH SBA. SMALL BM AND VOID PRESENT. PT REPORTS PAIN IS UNDER CONTROL. VS WNL. ICE WATER GIVEN AND TOLERATING WELL.
== END 2024-10-13 17:23 | disposition home or self-care (01) ==
LOC: ORSCMMR 11:11 → ORD 13:15 → BC 15:20 → ORSCMMR 17:23
PROVIDERS: Obstetrics & Gynecology
PROC: 0UT9FZZ Resection of Uterus, Via Natural or Artificial Opening With Percutaneous Endoscopic Assistance (ICD-10-PCS; principal; 2024-10-13 13:15)
PROC: 0UT7FZZ Resection of Bilateral Fallopian Tubes, Via Natural or Artificial Opening With Percutaneous Endoscopic Assistance (ICD-10-PCS; principal; 2024-10-13 13:15)
DX: N80.03 Adenomyosis of the uterus (principal); N92.1 Excessive and frequent menstruation with irregular cycle; D25.9 Leiomyoma of uterus, unspecified; N80.202 Endometriosis of left fallopian tube, unspecified depth; I10 Essential (primary) hypertension; J45.909 Unspecified asthma, uncomplicated; Z86.73 Personal history of transient ischemic attack (TIA), and cerebral infarction without residual deficits; Z79.899 Other long term (current) drug therapy; E66.9 Obesity, unspecified; Z68.37 Body mass index [BMI] 37.0-37.9, adult; F17.290 Nicotine dependence, other tobacco product, uncomplicated
CPT/HCPCS: 86850; 86900; 86901; A9270; J1100; J1580; J1885; J2405; J2704; J3010; J7120